=== PATIENT | male | born 1995 | race Caucasian/White ===

== ENCOUNTER 2023-02-24 00:26 | Emergency (ER) | payer SELFPAY ==
[2023-02-24 00:43] VITALS: BP 148/77; PULSE 80; RESP 18; TEMP 97.6; BMI 26.1
[2023-02-24] MEDS ORDERED: MECLIZINE HCL 12.5 MG TABLET PO ONE (01:19)
[2023-02-24] MEDS ORDERED: ONDANSETRON 4 MG/2 ML VIAL IVPUSH ONE (01:21)
[2023-02-24] MEDS ORDERED: MECLIZINE HCL 12.5 MG TABLET ONE (01:30)
[2023-02-24] MEDS ORDERED: ONDANSETRON 4 MG/2 ML VIAL ONE (01:30)
[2023-02-24 01:53] LABS: BASO % 0.4 % (0-2.0); EOS % 2.7 % (0-4.5); HEMATOCRIT 42.8 % (35.4-49); LYMPH % 23.7 % (8-40); MCH 29.8 pg (25.7-33.7); MCHC 35.1 g/dl (32.0-35.9); MEAN PLT VOLUME 9.6 fl (7.5-11.1); MONO % 7.8 % (3.8-10.2); NEUT % 65.4 % (42.8-82.8); PLATELET COUNT 139 10^3/uL (134-434); RBC 5.04 M/mm3 (4.00-5.60); RDW 12.8 % (11.9-15.9); WHITE BLOOD COUNT 5.9 K/mm3 (4.0-10.0)
[2023-02-24 02:14] LABS: CALCIUM 8.8 mg/dL (8.5-10.1)
[2023-02-24 02:15] LABS: ALBUMIN 3.9 g/dl (3.4-5.0); BLOOD UREA NITROGEN 12.8 mg/dL (7-18); MAGNESIUM 1.9 mg/dL (1.8-2.4)
[2023-02-24 02:18] LABS: CREATININE 0.7 mg/dL (0.55-1.3)
[2023-02-24 02:19] LABS: BILIRUBIN,TOTAL 0.5 mg/dL (0.2-1)
[2023-02-24 02:20] LABS: TOT PROT 6.7 g/dl (6.4-8.2)
[2023-02-24] MEDS ORDERED: MAGNESIUM SULF 50% (8.12 MEQ/2 ML-1 GM VIAL) IVPB ONE (02:20)
[2023-02-24] MEDS ORDERED: POTASSIUM CHLORIDE TABS 20 MEQ TABLET.ER (FP) PO ONE ×2 (02:20→02:25)
[2023-02-24] MEDS ORDERED: MAGNESIUM SULFATE IN WATER 2 GM/50 ML IVPB IVPB ONE (02:25)
== END 2023-02-24 03:07 | disposition home or self-care (01) ==
LOC: JER 00:26
PROC: 3E033GC Introduction of Other Therapeutic Substance into Peripheral Vein, Percutaneous Approach (ICD-10-PCS; principal; 2023-02-24)
PROC: 3E033GC Introduction of Other Therapeutic Substance into Peripheral Vein, Percutaneous Approach (ICD-10-PCS; 2023-02-24)
DX: R42 Dizziness and giddiness (principal); R00.2 Palpitations; R11.0 Nausea; Z20.822 Contact with and (suspected) exposure to COVID-19
CPT/HCPCS: 0241U-QW; 36415; 71046-TC-FY; 80053; 83735; 84100; 84484; 85025; 93005; 93010; 99285-25

== ENCOUNTER 2023-12-18 22:17 | Emergency (ER) | payer OTHER ==
[2023-12-18 22:22] VITALS: BP 143/73; PULSE 64; RESP 20; TEMP 98.5; BMI 25.8
[2023-12-18 23:36] LABS: PH,URINE 7.5 (5.0-8.0); URINE APPEARANCE TURBID; URINE BILIRUBIN NEGATIVE (NEGATIVE); URINE COLOR YELLOW; URINE GLUCOSE (UA) NEGATIVE (NEGATIVE); URINE KETONE NEGATIVE (NEGATIVE); URINE LEUK ESTERASE NEGATIVE (NEGATIVE); URINE NITRITE NEGATIVE (NEGATIVE); URINE PROTEIN NEGATIVE (NEGATIVE); URINE UROBILINOGEN 0.2 mg/dL (0.2-1.0)
[2023-12-18] MEDS ORDERED: ACETAMINOPHEN 500 MG TABLET (FP) ONE (23:46)
[2023-12-18] MEDS ORDERED: IBUPROFEN 400 MG TABLET (FP) PO ONE (23:46)
[2023-12-18] MEDS: ACETAMINOPHEN 500 MG TABLET (FP) PO ONE (23:47)
[2023-12-18] MEDS: IBUPROFEN 400 MG TABLET (FP) PO ONE (23:47)
== END 2023-12-19 01:12 | disposition home or self-care (01) ==
LOC: JER 22:17
DX: N50.811 Right testicular pain (principal); R10.31 Right lower quadrant pain; N43.3 Hydrocele, unspecified
CPT/HCPCS: 36415; 72192-TC; 76870-TC; 81003; 87086; 87491; 87591; 87661; 99284-25